=== PATIENT | female | born 1970 | race Caucasian/White ===

== ENCOUNTER 2017-05-02 10:49 | Emergency (ER) | payer MEDICAID, OTHER ==
[~2017-05-02] VITALS: Ht 162.6 cm; Wt 57.3 kg
[~2017-05-02 10:49] MED LIST: HYDR-3326 PO
[2017-05-02 11:23] LABS: *BLOOD, URINE NEGATIVE (NEGATIVE); *CLARITY,URINE CLEAR (CLEAR); *COLOR,URINE YELLOW (YELLOW); *KETONES,URINE 3+ (NEGATIVE); *PROTEIN,URINE 1+ (NEGATIVE); *UROBILINOGEN,URINE 0.2 E.U./dl (NORMAL); LEUKOCYTE ESTERASE ,URINE NEGATIVE (NEGATIVE); NITRITE, URINE NEGATIVE (NEGATIVE); UGLUCOSE NEGATIVE (NEGATIVE)
[2017-05-02] MEDS ORDERED: ONDANSETRON 4 MG/2 ML VIAL IV ONE (12:00)
[2017-05-02] MEDS ORDERED: IV NORMAL SALINE 1000 ML BAG IV ONE ×2 (12:00→14:00)
[2017-05-02 12:08] LABS: CARBON DIOXIDE 25 mmol/L (21-32); CHLORIDE 102 mmol/L (98-107); CREATININE 0.5 mg/dL (0.6-1.3); GLUCOSE 87 mg/dL (74-106); POTASSIUM 3.7 mmol/L (3.5-5.1); UREA NITROGEN, BLOOD 9 mg/dL (7-18)
[2017-05-02 12:14] LABS: ALANINE AMINOTRANSFERASE 22 U/L (14-59); ALKALINE PHOSPHATASE 73 U/L (50-136); ASPARTATE AMINOTRANSFERASE 11 U/L (15-37); BILIRUBIN,DIRECT 0.1 mg/dL (0.0-0.2); BILIRUBIN,TOTAL 0.3 mg/dL (0.2-1.0); LIPASE 122 U/L (73-393)
[2017-05-02] MEDS ORDERED: ONDANSETRON 4 MG/2 ML VIAL ONE (12:14)
[2017-05-02 12:15] LABS: BASOPHILS % (AUTO) 0.1 % (0.0-2.0); EOSINOPHILS % (AUTO) 0.4 % (0.0-7.0); HEMOGLOBIN 11.5 G/DL (12.0-16.0); LYMPHOCYTES # (AUTO) 1.2 K/UL (0.8-4.8); LYMPHOCYTES % (AUTO) 10.6 % (20.5-51.5); MEAN CORPUSCULAR HEMOGLOBIN 24.9 UUG (27.0-31.0); MEAN CORPUSCULAR HGB CONC 32 g/dL (32.0-37.0); MEAN CORPUSCULAR VOLUME 78.4 FL (81.0-99.0); MONOCYTES # (AUTO) 0.4 K/UL (0.1-1.30); MONOCYTES % (AUTO) 3.6 % (0.0-11.0); NEUTROPHILS # (AUTO) 9.8 K/UL (1.8-8.9); NEUTROPHILS % (AUTO) 85.3 % (38.5-71.5); PLATELET COUNT (AUTO) 486 K/UL (150-450); RED BLOOD CELL COUNT(AUTO) 4.59 MIL/UL (4.2-5.4); WHITE BLOOD COUNT (AUTO) 11.4 K/UL (4.0-11.2)
[2017-05-02 12:20] LABS: *BILIRUBIN,URIN NEGATIVE (NEGATIVE)
[2017-05-02 12:26] LABS: BACTERIA,URINE FEW /HPF (NONE SEEN); MUCUS,URINE MANY /LPF (0-FEW); RBC,URINE 0-3 /HPF (0-3); SQUAMOUS EPITHELIAL CELL,UR MANY /HPF (NONE SEEN); WBC,URINE 0-3 /HPF (0-3)
[2017-05-02 12:32] LABS: *URINE HCG, QUAL NEGATIVE (NEGATIVE)
--- NOTE | 2017-05-02 12:40 | NUR ---
KIM FINK TRYING TO REACH PT OWN INSURANCE AND COORDINATE WITH THEM
[2017-05-02 12:43] LABS: BAND % (MANUAL) 12 % (0-10); LYMPHOCYTES % (MANUAL) 7 % (20-40); MONOCYTES % (MANUAL) 4 % (2-10); NEUTROPHILS % (MANUAL) 77 % (42-75)
[2017-05-02] MEDS ORDERED: MORPHINE SULFATE 2 MG/1 ML DISP.SYRIN IV ONE ×2 (12:45→14:15)
[2017-05-02] MEDS ORDERED: IV NORMAL SALINE 250 ML IV ONE (12:54)
[2017-05-02] MEDS ORDERED: IOHEXOL 300MG/ML 100 ML INFUS..BTL ONE (12:54)
[2017-05-02] MEDS ORDERED: MORPHINE SULFATE 4 MG/1 ML DISP.SYRIN ONE (13:02)
[2017-05-02] MEDS ORDERED: PIPERACILLIN SODIUM/TAZOBACTAM 3.375 G in IV DEXTROSE 5% 50 ML IV ONE (14:00)
[2017-05-02] MEDS ORDERED: PIPERACILLIN/TAZOBACTAM/D5W 50 ML IV ONE (14:07)
[2017-05-02] MEDS ORDERED: MORPHINE SULFATE 10 MG/1 ML DISP.SYRIN ONE (14:33)
--- NOTE | 2017-05-02 16:25 | NUR ---
Patient does not wish to proceed with medical care recommended by Dr. Andi CRUZ). Patient given information related to possible complications, up to and including , which could occur as a result of leaving the hospital at this time. Patient verbalizes understanding of risks involved due to leaving against medical advice. Patient has signed AMA form. Addendum: 05/02/17 at 1652 by KYLIE COOPY OF ALL THE STUDIES PROVIDED FOR PT.
--- NOTE | 2017-05-02 16:25 | NUR ---
PT WALKS IN STEADY GAIT, DENIES ANY PAIN OR NAUSEA AT THIS POINT.
[2017-05-02 16:53] VITALS: BP 132/86
== END 2017-05-02 16:25 | disposition left against medical advice (07) ==
LOC: ER 10:52
DX: R10.9 Unspecified abdominal pain (principal)
CPT/HCPCS: 36415; 74020; 74177; 80048; 80076; 81001; 83690; 84703; 85025; 96361; 96365; 96375; 96376; 99285; A4663; J2270 ×2; J2405; J2543; J7030 ×2; J7050; Q9967

== ENCOUNTER 2017-06-22 15:15 | Emergency (ER) | payer OTHER ==
[~2017-06-22] VITALS: Ht 152.4 cm; Wt 54.4 kg
[2017-06-22] MEDS ORDERED: MORPHINE SULFATE 2 MG/1 ML DISP.SYRIN IV ONE (15:30)
[2017-06-22] MEDS ORDERED: ONDANSETRON 4 MG/2 ML VIAL IV ONE (15:30)
[2017-06-22 16:24] LABS: BASOPHILS # (AUTO) 0.1 K/uL (0.0-8.0); BASOPHILS % (AUTO) 0.8 % (0.0-2.0); EOSINOPHILS % (AUTO) 0.7 % (0.0-7.0); HEMATOCRIT 30.4 % (31.2-41.9); HEMOGLOBIN 9.8 g/dL (10.9-14.3); LYMPHOCYTES # (AUTO) 2.7 K/uL (20.0-40.0); LYMPHOCYTES % (AUTO) 41.2 % (20.5-51.5); MEAN CORPUSCULAR HEMOGLOBIN 24.4 uug (24.7-32.8); MEAN CORPUSCULAR HGB CONC 32 g/dL (32.3-35.6); MONOCYTES # (AUTO) 0.4 K/uL (2.0-10.0); MONOCYTES % (AUTO) 6.3 % (0.0-11.0); NEUTROPHILS # (AUTO) 3.3 K/uL (1.8-8.9); PLATELET COUNT (AUTO) 350 K/uL (179-408); WHITE BLOOD COUNT (AUTO) 6.5 K/uL (3.8-11.8)
[2017-06-22] MEDS ORDERED: MORPHINE SULFATE 4 MG/1 ML DISP.SYRIN ONE (16:25)
[2017-06-22] MEDS ORDERED: ONDANSETRON 4 MG/2 ML VIAL ONE (16:26)
[2017-06-22 16:51] LABS: CREATININE 0.6 mg/dL (0.6-1.3); POTASSIUM 3.6 mmol/L (3.5-5.1)
[2017-06-22 17:02] LABS: BILIRUBIN,DIRECT 0.1 mg/dL (0.0-0.2); BILIRUBIN,TOTAL 0.1 mg/dL (0.2-1.0); TOTAL PROTEIN, SERUM 7.3 g/dL (6.4-8.2)
[2017-06-22] MEDS ORDERED: NORMAL SALINE FLUSH 10 ML DISP.SYRIN ONE (17:34)
[2017-06-22] MEDS ORDERED: IOHEXOL 300MG/ML 100 ML INFUS..BTL ONE (17:34)
[2017-06-22] MEDS ORDERED: IV NORMAL SALINE 250 ML IV ONE (17:34)
--- NOTE | 2017-06-22 18:41 | NUR ---
Per MD orders, pt able to be discharged home. Pt able to ambulate unassisted w/ steady gait. Written and verbal after care instructions given. Pt instructed to return if pain continues and follow up with Primary physician. Pt verbalizes understanding of instructions.
[2017-06-22 18:47] VITALS: BP 111/78
== END 2017-06-22 16:48 | disposition home or self-care (01) ==
LOC: ER 15:15
DX: K52.9 Noninfective gastroenteritis and colitis, unspecified (principal); D64.9 Anemia, unspecified; R10.31 Right lower quadrant pain; Z90.49 Acquired absence of other specified parts of digestive tract; Z85.038 Personal history of other malignant neoplasm of large intestine; Z98.890 Other specified postprocedural states
CPT/HCPCS: 36415; 83690; 85025; A4663; J2270; J2405; J3490; J7050; Q9967

== ENCOUNTER 2017-07-22 13:45 | Emergency (ER) | payer MEDICAID, OTHER ==
[~2017-07-22] VITALS: Ht 165.1 cm; Wt 54.4 kg
--- NOTE | 2017-07-22 14:05 | NUR ---
Patient discharged to home in stable conditon. Written and verbal after care instructions given. Patient verbalizes understanding of instructions.
== END 2017-07-22 14:11 | disposition home or self-care (01) ==
LOC: ER 13:47
DX: J06.9 Acute upper respiratory infection, unspecified (principal); Z85.038 Personal history of other malignant neoplasm of large intestine
CPT/HCPCS: A4663

== ENCOUNTER 2018-02-13 09:48 | Emergency (ER) | payer OTHER ==
[~2018-02-13] VITALS: Ht 165.1 cm; Wt 54.4 kg
--- NOTE | 2018-02-13 10:30 | NUR ---
ADMIT A FEMALE PT IN RM 2A, AMBULATORY WITH A CHIEF C/O URGENCY IN URINATION BUT VERY LITTLE COMIS OUT. DENIES ANY PAIN.
[2018-02-13] MEDS ORDERED: PHENAZOPYRIDINE HCL 100 MG TABLET PO ONE (10:45)
[2018-02-13] MEDS ORDERED: LEVOFLOXACIN 750 MG TABLET PO ONE (10:45)
[2018-02-13 10:47] LABS: *BILIRUBIN,URIN NEGATIVE (NEGATIVE); *BLOOD, URINE 1+ (NEGATIVE); *CLARITY,URINE CLEAR (CLEAR); *COLOR,URINE YELLOW (YELLOW); *KETONES,URINE NEGATIVE (NEGATIVE); *PROTEIN,URINE NEGATIVE (NEGATIVE); *URINE HCG, QUAL NEGATIVE (NEGATIVE); *UROBILINOGEN,URINE 0.2 E.U./dl (NORMAL); LEUKOCYTE ESTERASE ,URINE NEGATIVE (NEGATIVE); NITRITE, URINE NEGATIVE (NEGATIVE); PH,URINE 5.5 (5.0-8.0); UGLUCOSE NEGATIVE (NEGATIVE)
--- NOTE | 2018-02-13 10:47 | NUR ---
PT MEDICATED WITH LEVAQUIN 750MG PO AND PYRIDIUM 200MG PO GIVEN ORDERED.
[2018-02-13 10:49] LABS: BACTERIA,URINE FEW /HPF (NONE SEEN); MUCUS,URINE FEW /LPF (0-FEW); SQUAMOUS EPITHELIAL CELL,UR FEW /HPF (NONE SEEN); WBC,URINE 0-3 /HPF (0-3)
[2018-02-13] MEDS ORDERED: LEVOFLOXACIN 750 MG TABLET ONE (10:50)
[2018-02-13] MEDS ORDERED: PHENAZOPYRIDINE HCL 100 MG TABLET ONE (10:50)
--- NOTE | 2018-02-13 10:50 | NUR ---
Note dorene in ED - 02/13/18 at 1120 by CATRACHITO ADMIT A FEMALE PT IN RM 2A, AMBULATORY FROM HOME WITH A CHIEF C/O DIFFICULTY IN URINATION/URGENCY BUT VERY LITTLE URINE OUT. DENIES OF ANY PAIN. URINE SPECIMEN SENT TO LAB.
--- NOTE | 2018-02-13 10:55 | NUR ---
SEEN AND EXAMINED BY DR MCMILLAN WITH NEW ORDERS.
--- NOTE | 2018-02-13 11:00 | NUR ---
PT IS BEING DISCHARGED. DR MCMILLAN SPOKE WITH THE PT. DISCHARGE INSTRUCTION GIVEN TO PT WITH GOOD UNDERSTANDING. PRESCRIPTION ALSO GIVEN.
--- NOTE | 2018-02-13 11:05 | NUR ---
PT WENT HOME AMBULATORY CONDITION IS STABLE.
[2018-02-13 11:30] VITALS: BP 118/81
== END 2018-02-13 11:05 | disposition home or self-care (01) ==
LOC: MERGE 09:48 → ER 09:48
DX: N39.0 Urinary tract infection, site not specified (principal); Z90.49 Acquired absence of other specified parts of digestive tract
CPT/HCPCS: 81001; 84703; 87086; 99284; A4663; 87077

== ENCOUNTER 2018-08-25 06:51 | Inpatient (IN) | payer OTHER ==
[~2018-08-25] VITALS: Ht 162.6 cm; Wt 59.0 kg
[2018-08-25] MEDS ORDERED: IV NORMAL SALINE 1000 ML BAG IV ONE (07:15)
[2018-08-25] MEDS ORDERED: ONDANSETRON 4 MG/2 ML VIAL IV ONE (07:15)
[2018-08-25] MEDS ORDERED: HYDROMORPHONE 1 MG/1 ML DISP.SYRIN IV ONE ×2 (07:15→10:15)
[2018-08-25] MEDS ORDERED: ONDANSETRON 4 MG/2 ML VIAL ONE ×2 (07:21→10:10)
[2018-08-25] MEDS ORDERED: HYDROMORPHONE 1 MG/1 ML DISP.SYRIN ONE (07:21)
[2018-08-25 07:31] LABS: BASOPHILS # (AUTO) 0.1 K/uL (0.0-8.0); BASOPHILS % (AUTO) 1.2 % (0.0-2.0); EOSINOPHILS # (AUTO) 0.1 K/uL (0.0-0.7); EOSINOPHILS % (AUTO) 1.4 % (0.0-7.0); HEMATOCRIT 40.1 % (31.2-41.9); HEMOGLOBIN 13.2 g/dL (10.9-14.3); LYMPHOCYTES # (AUTO) 1.5 K/uL (20.0-40.0); LYMPHOCYTES % (AUTO) 24.2 % (20.5-51.5); MEAN CORPUSCULAR HEMOGLOBIN 27.2 uug (24.7-32.8); MEAN CORPUSCULAR HGB CONC 33 g/dL (32.3-35.6); MEAN CORPUSCULAR VOLUME 82.6 fL (75.5-95.3); MONOCYTES # (AUTO) 0.4 K/uL (2.0-10.0); NEUTROPHILS # (AUTO) 4.1 K/uL (1.8-8.9); NEUTROPHILS % (AUTO) 67.2 % (38.5-71.5); PLATELET COUNT (AUTO) 421 K/uL (179-408); RED BLOOD CELL COUNT(AUTO) 4.86 MIL/uL (3.63-4.92); WHITE BLOOD COUNT (AUTO) 6.1 K/uL (3.8-11.8)
[2018-08-25 07:39] LABS: CARBON DIOXIDE 27 mmol/L (21-32); CHLORIDE 100 mmol/L (98-107); CREATININE 0.5 mg/dL (0.6-1.3); GLUCOSE 97 mg/dL (74-106); POTASSIUM 3.5 mmol/L (3.5-5.1); UREA NITROGEN, BLOOD 6 mg/dL (7-18)
[2018-08-25 07:44] LABS: ALANINE AMINOTRANSFERASE 18 U/L (14-59); ALKALINE PHOSPHATASE 88 U/L (50-136); ASPARTATE AMINOTRANSFERASE 20 U/L (15-37); BILIRUBIN,DIRECT 0.1 mg/dL (0.0-0.2); BILIRUBIN,TOTAL 0.4 mg/dL (0.2-1.0); LIPASE 78 U/L (73-393); TOTAL PROTEIN, SERUM 7.7 g/dL (6.4-8.2)
--- NOTE | 2018-08-25 07:45 | NUR ---
Patient is now ready for CT scan. Radiology department was called.
[2018-08-25 07:52] LABS: *BILIRUBIN,URIN 1+ (NEGATIVE); *BLOOD, URINE TRACE (NEGATIVE); *CLARITY,URINE CLEAR (CLEAR); *COLOR,URINE YELLOW (YELLOW); *KETONES,URINE 2+ (NEGATIVE); PH,URINE 6.5 (5.0-8.0); UGLUCOSE NEGATIVE (NEGATIVE)
[2018-08-25 07:53] LABS: *UROBILINOGEN,URINE 0.2 E.U./dl (NORMAL); LEUKOCYTE ESTERASE ,URINE TRACE (NEGATIVE); NITRITE, URINE NEGATIVE (NEGATIVE)
[2018-08-25 07:55] LABS: BACTERIA,URINE FEW /HPF (NONE SEEN); RBC,URINE 0-3 /HPF (0-3); SQUAMOUS EPITHELIAL CELL,UR MODERATE /HPF (NONE SEEN); WBC,URINE 0-3 /HPF (0-3)
--- NOTE | 2018-08-25 08:25 | NUR ---
biomedical equipment technicianterrell Crawford [phone] and said that she can not see the CT order in her tech work list . biomedical equipment technicianterrell Crawford asked MD to reorder the CT scan. Dr Bartholomew notified.
[2018-08-25] MEDS ORDERED: HYDROMORPHONE 2 MG/1 ML DISP.SYRIN ONE (10:10)
[2018-08-25] MEDS ORDERED: ONDANSETRON IV *ER 4 MG/2 ML VIAL IV ONE (10:15)
--- NOTE | 2018-08-25 10:16 | NUR ---
Dr Copeland is at bedside evaluating the patient.
--- NOTE | 2018-08-25 11:45 | NUR ---
ADMITTED FROM HOME A 47 YO FEMALE WITH ADM DX OF ABDOMINAL PAIN AWAKE ALERT AND ORIENTED X3, C/O OF SLIGHT FEELING OF NAUSEA, LAST BM 08/24. ROUTINE ADMISSION ASSESSMENT INITIATED. WILL NOTIFY MD FOR ADMISSION ORDERS
[2018-08-25 12:04] VITALS: BP 128/83
[2018-08-25] MEDS ORDERED: Z GUARD REMEDY PASTE 57 GM TUBE TOP PRN (12:15)
[2018-08-25] MEDS ORDERED: ONDANSETRON 4 MG/2 ML VIAL IV PRN (12:15)
[2018-08-25] MEDS ORDERED: HYDROCODONE/APAP 10-325 MG TABLET PO PRN (12:15)
[2018-08-25] MEDS ORDERED: ZOLPIDEM 5 MG TABLET PO PRN (12:15)
[2018-08-25] MEDS ORDERED: ACETAMINOPHEN 325 MG TABLET PO PRN (12:15)
[2018-08-25] MEDS ORDERED: MAGNESIUM HYDROXIDE 30 ML LIQUID UDC PO PRN (12:15)
[2018-08-25] MEDS ORDERED: HYDROCODONE/APAP 5-325MG TABLET PO PRN (12:15)
[2018-08-25] MEDS: IV NS 1000 ML 1,000 ML IV PRN (12:49)
[2018-08-25] MEDS: MORPHINE SULFATE 2 MG/1 ML DISP.SYRIN IV PRN ×2 (13:08→18:46)
--- NOTE | 2018-08-25 15:40 | NUR ---
PATIENT HAS SEEN BY DOCTOR FRANTZ, SEE DOCTOR'S NOTES
[2018-08-25 15:50] VITALS: BP 114/80
--- NOTE | 2018-08-25 17:00 | NUR ---
PATIENT WAS VOMITED LARGE AMOUNT OF EMESIS ,MEDICATED WITH ZOFRAN, SEEMS RELIEVED
--- NOTE | 2018-08-25 19:30 | NUR ---
SBAR RECEIVED FROM DAY SHIFT NURSE. PATIENT ALERT AND ORIENTED X 4. C/O PAIN IN ABDOMEN UPON ASSESSMENT. WILL MEDICATE. NO C/O NAUSEA AT THIS TIME. WILL CONTINUE TO MONITOR.
[2018-08-25 20:06] VITALS: BP 115/78
[2018-08-26] VITALS: BP 96/65
[2018-08-26 04:10] VITALS: BP 103/70
[2018-08-26] MEDS: IV NS 1000 ML 1,000 ML IV PRN (05:01)
[2018-08-26] MEDS: MORPHINE SULFATE 2 MG/1 ML DISP.SYRIN IV PRN (05:02)
--- NOTE | 2018-08-26 06:17 | NUR ---
PATIENT REFUSED MORNING BLOOD DRAW AND TELEMETRY MONITORING. PATIENT VERY AGGRAVATED AND STATING THAT WE ARE "TWO FACED." STATES THAT PAIN MEDICATION IS NOT WORKING FOR HER DESPITE REPORTING PAIN MEDICATION WORKING FOR HER WHEN ASKED ALL NIGHT LONG. CHARGE NURSE SPOKE WITH PATIENT AND IS REQUESTING STRONGER PAIN MEDICATION. WILL CONTACT DOCTOR. WILL CONTINUE TO MONITOR.
[2018-08-26] MEDS ORDERED: HYDROMORPHONE 1 MG/1 ML DISP.SYRIN IM PRN ×2 (06:30→08:15)
--- NOTE | 2018-08-26 06:51 | NUR ---
MD NGUYEN ORDER 1 MG DILAUDID IV FOR SEVERE PAIN. WILL ADMINISTER AFTER PHARMACY APPROVAL. PATIENT CALL AND RESTING IN BED. STILL REFUSING TELEMETRY MONITORING. WILL ENDORSE TO ONCOMING SHIFT ACCORDINGLY.
--- NOTE | 2018-08-26 07:46 | NUR ---
IN BED RESTING WITH EYES CLOSED NO SS OF DISTRESS. SR ON MONITOR CONTINUE WITH PAIN MANAGEMENT.
[2018-08-26] MEDS ORDERED: MORPHINE SULFATE 2 MG/1 ML DISP.SYRIN IV PRN (08:15)
--- NOTE | 2018-08-26 10:00 | NUR ---
PATIENT WANTS TO LEAVE VAIBHAV WEBER AROUND AND MADE AWARE SAID OK FOR VAIBHAV
--- NOTE | 2018-08-26 10:41 | NUR ---
PATIENT SHE HOME AMA VIA UBER
== END 2018-08-26 10:45 | disposition left against medical advice (07) | DRG 240 ==
LOC: ER 06:51 → TELE3 11:27
DX: C18.9 Malignant neoplasm of colon, unspecified (principal); C79.89 Secondary malignant neoplasm of other specified sites; C78.7 Secondary malignant neoplasm of liver and intrahepatic bile duct; N28.1 Cyst of kidney, acquired; R18.8 Other ascites; E88.09 Other disorders of plasma-protein metabolism, not elsewhere classified; Z90.49 Acquired absence of other specified parts of digestive tract; N83.9 Noninflammatory disorder of ovary, fallopian tube and broad ligament, unspecified; R11.10 Vomiting, unspecified
CPT/HCPCS: 36415; 70030-TC; 71045; 76700; 83690; 85025; 85730; 93005; A4663; G0378; J1170; J2270; J2405; J7030